=== PATIENT | male | born 1965 | race Caucasian/White ===

== ENCOUNTER 2022-01-14 08:07 | Outpatient (CLI) | payer BC, SELFPAY ==
--- NOTE | 2022-01-14 08:00 | RT.EKG_ITS ---
APPROVED REPORT Exam: Resting ECG Reason for Exam: afib Patient Location: O HR:71 bpm ECG Measurements Heart Rate 71 AXIS NV 201 P 68 QRSd 93 QRS 51 QT 380 T 42 QTc 413 Conclusion Sinus rhythm...normal P axis, V-rate 50- 99 Normal Electrocardiogram
== END 2022-01-14 08:08 | disposition home or self-care (01) ==
LOC: DI.CARD 08:08
PROVIDERS: PCP Nurse Practitioner Family; Visit Provider Internal Medicine Cardiovascular Disease
DX: I48.91 Unspecified atrial fibrillation (principal)
CPT/HCPCS: 93010

== ENCOUNTER → 2022-02-22 00:37 | Outpatient (CLI) | payer BC, SELFPAY ==
--- NOTE | 2022-02-22 07:45 | DI.NM_ITS ---
APPROVED REPORT Exam: Pharmacologic Patient Location: Out-Patient Room/Bed: Stress Nurse: Shauna Ohara RN Ordering Provider:MARC PEÑA, Contact Number: BMI: 31.19 Baseline Rhythm: Sinus Rhythm Comment: inverted lead III Indications: Palpitations Medical History Medical History: pAF, palpitations, HTN, HLD, DM, EVERETTE Cardiac Medications: Simvastatin, Omeprazole, Metoprolol succinate, Metformin, Losartan, Insulin glar gine, Hydrochlorothiazide, Glimepiride, Dulaglutide, Dapagliflozin, ASA Allergies: No known drug allergies Cardiac Risk Factors: HTN, Hyperlipidemia, DM Previous Cardiac Procedures: None Pretest Chest Pain Characteristics: None Exercise History: Sedentary Physical Disabilities: None Lung Sounds: Clear to auscultation Heart Sounds: Regular Stress Test Details Test: Exercise stress converted to pharmacologic stress due to failure to obtain a diagnostic stress test. Reason for pharmacologic stress test: changed from exercise stress test due to inability to reach t arget heart rate. Nuclear Acquisition: Rest Tc-99m/Stress Tc-99m 1 day Rest Isotope: Tc-99m Sestamibi. Dose: 11.0 Date: 02/22/2022 Injection Time: 1140 Stress Isotope: Tc-99m Sestamibi. Dose: 37.0 Date: 02/22/2022 Injection Time: 1331 HR Resting HR Supine: 80 bpm Max Heart Rate (APMHR): 162.309855 bpm Resting HR Standin bpm Target HR (85% APMHR): 137.951400 bpm Max HR Achieved: 130 bpm % of APMHR: 80.25 Recovery HR: 111 bpm Comment: Metoprolol succinate not held for test. BP Resting BP Supine: 142/80 mmHg Resting BP Standin/76 mmHg Max BP: 172/60 mmHg Recovery BP: 140/78 mmHg ECG Resting ECG: Sinus Rhythm Ectopy: none Comment: inverted T wave in lead III Stress ECG: Sinus Tachycardia ST Change: Horizontal ST depression Lead(s): inferior leads Stage: [address] Deviation: 1 mm Arrhythmia: rare PVC Recovery ECG: Sinus Tachycardia Recovery ST Change: Downsloping ST depression Lead(s): inferior leads, V6 Recovery ST Deviation: 1.5 mm Recovery Arrhythmia: None Clinical Stress Symptoms: Dyspnea, persistent cough Exercise duration: 08 min32 sec Highest Stage Reached: Stage 3: 3.4 mph at 14% grade. Exercise capacity: 10.06 METs Rate Pressure Product: 50972 Stress Test Summary STAGE Time (mins) Speed (mph) Grade (%) HR BP SYMPTOMS METS Supine 80 142/80 Standing 81 138/76 1 3 1.7 10 104 140/64 4.6 2 6 2.5 12 115 158/64 7 3 9 3.4 14 126 172/60 10.2 1 min post Lexiscan injection 128 162/62 3 min post Lexiscan injection 108 148/74 persistent cough began. 6 min post Lexiscan injection 109 132/88 9 min post Lexiscan injection 111 140/78 Elevated HR not resolving in recovery d/t presence of persistent cough following lexiscan injection. MPI Conclusion Myocardial l perfusion is normal, no evidence of ischemia or prior infarction EF is 68%, wall motion is normal Radiologist Interpretation Radiologist agrees with Human Service Coordinator's Interpretation. Radiologist Interpretation by: Jamal Jimenez MD Interpretation Date/Time: 02/24/2022 15:31:20
[2022-02-22] MEDS: Regadenoson 0.4 MG/5 ML SYR IVP (13:44)
== END ==
PROVIDERS: PCP Nurse Practitioner Family; Visit Provider Internal Medicine Cardiovascular Disease
DX: R00.2 Palpitations (principal)
CPT/HCPCS: 78452; 93017; J2785

== ENCOUNTER → 2022-03-09 00:26 | Outpatient (CLI) | payer BC, SELFPAY ==
--- OUTSIDE RECORDS SUMMARY | 2022-03-09 00:27 | XMS_ITS | CCD ---
:1965 Author Care Team Providers Name Role Phone ELIUD MIMS Attending Physician Unavailable ELIUD MIMS Rounding (Secondary) Physician Unavailab le Vital Signs Unknown or Not Available. Allergies Allergy Code Allergy Type Reaction Status No Known Allergies 0 No known allergies Act enzo Procedures Unknown or Not Available. History of Immunizations Unknown or Not Available. Problems Unknown or Not Available. Results Unknown or Not Available. Active Medications Unknown or Not Available. Medications Administered During Visit Unknown or Not Available. Encounters Encounter Diagnosis Diagnosis Code Start Date Pain in left shoulder [id number] 02/16/2022 Social History Smoking Status Code Start Date End Date Never smoker [id number] Patient Decision Aids Unknown or Not Available. Discharge Instructions You were admitted to [facility] on 02/16/2022 12:01 with a principal diagnosis of Pain in left shoulder You were discharged from [facility] on 02/16/2022 00:00 Should you have any questions prior to d ischarge, please contact a member of your healthcare team. If you have left the ho spital and have any questions, please contact your primary care physician. Chief Complaint and Reason For Visit Unknown or Not Available. Function Status Unknown or Not Available. Plan of Care Unknown or Not Available. Referral/Transition of Care Unknown or Not Available.
--- OUTSIDE RECORDS SUMMARY | 2022-03-09 00:28 | XMS_ITS | CCD ---
:1965 Author Care Team Providers Name Role Phone SARAH ROBLEDO MD Attending Physician Unavailable Vital Signs Unknown or Not Available. Allergies [...] Encounters Encounter Diagnosis Diagnosis Code Start Date Acquired deformity of left foot [id number] 04/27/20 21 Social History Smoking Status Code Start Date End Date Never smoker [id number] Patient Decision Aids Unknown or Not Available. Discharge Instructions You were admitted to [facility] on 04/27/2021 07:40 with a principal diagnosis of Other acquired deformities of left foot You were discharged from [facility] on 04/27/2021 07:40 Should you have any questions prior to d ischarge, please contact a member of your healthcare team. If you have left the spital and have any questions, please contact your primary care physician. Chief Complaint and Reason For Visit Unknown or Not Available. Function Status Unknown or Not Available. Plan of Care Unknown or Not Available. Referral/Transition of Care Unknown or Not Available.
--- NOTE | 2022-03-09 07:30 | DI.US_ITS ---
APPROVED REPORT EXAM: Comprehensive 2D, Doppler, and color-flow Echocardiogram Patient Location: Out-Patient Allergy Specialist: Polly Rust RDCS (AE) Indications: Palpitations Other Information Study Quality: Adequate Conclusion Normal left ventricular wall thickness and chamber size. Estimated ejection fraction is 60%. Wall m otion is normal Normal right ventricular size and systolic function Both atria are normal in size Aortic valve is mildly sclerotic, trileaflet, without stenosis or regurgitation There is no additional structural or hemodynamically significant valvular disease Mildly dilated ascending aorta measuring 3.73 cm Estimated right ventricular systolic pressure is 24 mmHg Wall motion Left Ventricle The left ventricle is normal size. The left ventricular systolic function is normal. The left ventric ular ejection fraction is within the normal range. There is normal left ventricular wall thickness. T here is normal LV segmental wall motion. There is no ventricular septal defect visualized. LVEF is 60 %. Right Ventricle The right ventricle is normal size. The right ventricular systolic function is normal. The RVSP is 24 .3 mmHg. Atria The left atrium size is normal. The right atrium size is normal. The interatrial septum is intact wit h no evidence for an atrial septal defect. Aortic Valve Aortic valve is mildly sclerotic Aortic valve is trileaflet. There is no aortic valvular stenosis. No aortic regurgitation is present. Mitral Valve The mitral valve is normal in structure. No evidence of mitral valve stenosis. Trace to mild mitral r egurgitation. Tricuspid Valve The tricuspid valve is normal in structure. There is no tricuspid valve stenosis. Trace tricuspid reg urgitation. Pulmonic Valve The pulmonary valve is normal in structure. There is no pulmonic valvular stenosis. Trace to mild pul lenny regurgitation. Great Vessels The aortic root is normal in size. The ascending aorta is mildly dilated.3.73 cm Aortic arch is arden l in caliber. IVC is normal in size and collapses >50% with inspiration. Pericardium There is no pericardial effusion. 2D Dimensions IVSD d PLAX 1.01 cm M: 0.6-1.2 LV Vol A2C d MOD 105.3 mL LVPW d PLAX 1.00 cm M: 0.6 - 1.2 LV Vol A4C d MOD 107.5 mL LVID d PLAX 4.75 cm M: 4.2 - 5.8 LA vol/ BSA A2C s A-L 33.5 mL/m2 LVDs 3.30 cm M: 2.5 - 4.0 LA vol/ BSA A4C s A-L 38.3 mL/m2 Ao Root d 3.46 cm M: 3.1 - 3.7 LA Vol/ BSA Biplane s A-L 37.3 mL/m2 RA Area A4C 18.33 cm2 LA Area A4C s MOD 25.47 cm2 RA Vol/ BSA A4C s A-L 24.2 mL/m2 LA Area A2C s MOD 22.83 cm2 Ao Asc Diam d 3.73 cm M: 2.6 - 3.4 LV EF A4C MOD 60.1 % LV EF Teichholz 57.4 % LV EF A2C MOD 59.0 % LVEF (Vogt's) 59.75 % M: 52 - 72 LV EF Biplane MOD 59.7 % LV Volume 77.54 mL M: 62 - 150 SV 64.24 mL LV Volume Index 34.30 mL/m2 M: 34 - 74 SV Index 28.42 mL/m2 LV Vol Biplane MOD 107.5 mL FS 30.15 % M-Mode TAPSE 2.63 cm (M/F) >1.7 LV Diastology MV E' medial 0.094 (>0.07 m/s) E/A Ratio 1.0 LV E/e MED 6.70 (<14) MV E Vmax 0.63 (0.4-1.3 m/s) MV E' lateral 0.113 (>0.1 m/s) MV A Vmax 0.65 (0.4-1.3 m/s) LV E/e LAT 5.50 (<14) MV E/A Ratio 0.95 MV E/E' medial 6.70 MV E/E' lateral 5.55 Aortic Valve LVOT Area 3.51 cm2 AoV Area Vmax 1.98 cm2 LVOT Vmax 0.84 m/s AoV Area/ BSA (Vmax) 0.87 cm2/m2 LVOT Mean Joey. 0.59 m/s EMBER Mean Joey. 1.99 cm2 LVOT Peak Grad 2.8 mmHg EMBER Mean Joey. Index 0.88 cm2/m2 LVOT Mean Grad 1.6 mmHg LVOT VTI 0.177 m LVOT Diam s 2.10 cm AoV Vmax 1.49 m/s Velocity Ratio 0.56 AoV Mean Joey. 1.04 m/s AoV Peak Grad 8.9 mmHg LVOT SV 62.00 mL AoV Mean Grad 4.9 mmHg AoV VTI 0.295 m AoV Area VTI 2.10 cm2 AoV Area/ BSA (VTI) 0.93 cm/m2 Mitral Valve MV DT 192 (160-240 msec) MR Vmax 5.48 m/s MV PHT 56 msec MR VTI 1.931 m MV Area PHT 3.95 cm2 MR Peak Grad 119.9 mmHg MV VTI 0.212 m MR Mean Grad 89.6 mmHg MV Area VTI 2.93 (4.0-6.0 cm2) Pulmonary Valve PV Vmax 1.14 (0.5-1.5 m/s) RVOT Peak Gr. 2.28 mmHg PV Peak Grad 5.2 mmHg RVOT Mean Gr. 1.20 mmHg PV Mean Grad 2.7 mmHg RVOT VTI 0.152 m PV VTI 0.214 m RVOT Vmax 0.75 m/s Tricuspid Valve TR Peak Grad 21.3 mmHg TR Vmax 2.31 m/s RA Pressure 3.00 mmHg RVSP (TR) 24.3 mmHg
== END ==
PROVIDERS: PCP Nurse Practitioner Family; Visit Provider Internal Medicine Cardiovascular Disease
DX: R00.2 Palpitations (principal)
CPT/HCPCS: 93306

== ENCOUNTER 2023-05-02 09:47 | Outpatient (CLI) | payer BC, SELFPAY ==
--- NOTE | 2023-05-02 09:45 | RT.EKG_ITS ---
APPROVED REPORT Exam: Resting ECG Reason for Exam: F/U Patient Location: O HR:97 bpm ECG Measurements Heart Rate 97 AXIS AL 180 P 4 QRSd 95 QRS 14 QT 359 T 45 QTc 456 Conclusion Sinus rhythm...normal P axis, V-rate 50- 99 Normal Electrocardiogram
== END 2023-05-02 09:48 | disposition home or self-care (01) ==
LOC: DI.CARD 09:48
PROVIDERS: Visit Provider Internal Medicine Cardiovascular Disease
DX: R00.2 Palpitations (principal)
CPT/HCPCS: 93010

== ENCOUNTER 2025-04-29 09:11 | Outpatient (CLI) | payer BC, SELFPAY ==
--- NOTE | 2025-04-29 09:00 | RT.EKG_ITS ---
APPROVED REPORT Exam: Resting ECG Reason for Exam: cardiac evaluation Patient Location: O HR:78 bpm ECG Measurements Heart Rate 78 AXIS [place] 209 P -2 QRSd 94 QRS 17 QT 372 T 54 QTc 424 Conclusion Sinus rhythm...normal P axis, V-rate 50- 99 Normal Electrocardiogram
== END 2025-04-29 09:12 | disposition home or self-care (01) ==
LOC: DI.CARD 09:11
PROVIDERS: PCP Physician Assistant Medical; Visit Provider Internal Medicine Cardiovascular Disease
DX: I10 Essential (primary) hypertension (principal); R00.2 Palpitations; I48.0 Paroxysmal atrial fibrillation
CPT/HCPCS: 93010